=== PATIENT | female | born 2000 | race Caucasian/White ===

== ENCOUNTER 2024-07-14 05:48 | Outpatient (CLI) | payer MEDICAID, SELFPAY ==
--- NOTE | 2024-07-14 06:07 | US_ITS ---
WS: [id number] ABDOMINAL ULTRASOUND LIMITED REASON FOR VISIT: RUQ PAIN TECHNIQUE: Grayscale and Doppler ultrasound examination of the abdomen. FINDINGS: Pancreas: No mass, ductal dilatation Tatian or calcification. Abdominal aorta and IVC: Normal Liver: Liver measures 18.6 cm in length. Markedly echogenic with heterogeneous normal echo texture. Gallbladder: Gallbladder wall thickness measures 0.1 mm. No gallbladder calculi. No pericholecystic f luid. Right kidney: Right kidney measures 10.7 cm x 5.6 cm x 4.5 cm. Right kidney cortex measures 1.4 cm. N o mass, calculus, or hydronephrosis. No ascites. US/US abdomen limited [id number] IMPRESSION: Enlarged liver with increased echogenicity. Most common cause is fatty infiltra tion of the liver. Other forms of hepatitis may appear similar.
== END 2024-07-14 05:49 | disposition home or self-care (01) ==
LOC: RAD 05:51
PROVIDERS: PCP Family Medicine; Visit Provider Family Medicine
DX: R16.0 Hepatomegaly, not elsewhere classified (principal); R10.11 Right upper quadrant pain
CPT/HCPCS: 76705